=== PATIENT | male | born 1990 | race Caucasian/White ===

== ENCOUNTER 2017-02-25 13:12 | Emergency (ER) | payer OTHER ==
[~2017-02-25] VITALS: Ht 172.7 cm; Wt 88.6 kg
[2017-02-25 13:15] VITALS: BP 146/80; TEMP 97.9
[2017-02-25] MEDS ORDERED: NAPROSYN500 MG PO (13:36)
[2017-02-25] MEDS ORDERED: ZOFRAN 4MG T4 MG/TAB PO (13:37)
[2017-02-25] MEDS ORDERED: ASPI325T6 PO (13:37)
[2017-02-25] MEDS ORDERED: COLACE 100100 MG/CAP PO (13:38)
[2017-02-25] MEDS ORDERED: ROXICODONE 55 MG/TAB PO (13:39)
[2017-02-25] MEDS ORDERED: PERCOCET 325 MG1 TA2 PO (14:29)
[2017-02-25 14:46] VITALS: PULSE 95
== END 2017-02-25 14:47 | disposition home or self-care (01) ==
LOC: COL.ER 13:12
DX: M79.89 Other specified soft tissue disorders (principal); Z98.890 Other specified postprocedural states

== ENCOUNTER 2020-03-29 10:22 | Emergency (ER) | payer OTHER ==
[~2020-03-29] VITALS: Ht 172.7 cm; Wt 90.9 kg
[~2020-03-29 10:22] MED LIST: ASPI325T6 PO; COLACE 100100 MG/CAP PO; NAPROSYN500 MG PO; PERCOCET 325 MG1 TA2 PO; ROXICODONE 55 MG/TAB PO; ZOFRAN 4MG T4 MG/TAB PO
[2020-03-29 10:28] VITALS: TEMP 98.1
[2020-03-29 11:36] VITALS: BP 146/109; PULSE 101
== END 2020-03-29 11:36 | disposition home or self-care (01) ==
LOC: COL.ER 10:22
DX: M23.91 Unspecified internal derangement of right knee (principal); X50.1XXA Overexertion from prolonged static or awkward postures, initial encounter; Y93.44 Activity, trampolining

== ENCOUNTER 2020-11-13 21:18 | Emergency (ER) | payer OTHER ==
[~2020-11-13] VITALS: Ht 172.7 cm; Wt 90.9 kg
[2020-11-13 21:22] VITALS: BP 152/92; TEMP 97.4
[2020-11-13 21:50] VITALS: PULSE 100
== END 2020-11-13 21:48 | disposition home or self-care (01) ==
LOC: COL.ER 21:18
DX: S61.512A Laceration without foreign body of left wrist, initial encounter (principal); Z79.82 Long term (current) use of aspirin; W26.0XXA Contact with knife, initial encounter

== ENCOUNTER → 2021-07-05 | Outpatient (CLI) | payer OTHER | LOC: MHCPAIN 09:58 | DX: M47.816 Spondylosis without myelopathy or radiculopathy, lumbar region (principal); M54.16 Radiculopathy, lumbar region; M53.3 Sacrococcygeal disorders, not elsewhere classified | CPT/HCPCS: G0463 ==

== ENCOUNTER → 2021-07-19 | Outpatient (CLI) | payer OTHER | LOC: MHCPAIN 14:42 | DX: M47.817 Spondylosis without myelopathy or radiculopathy, lumbosacral region (principal); M54.16 Radiculopathy, lumbar region; M53.3 Sacrococcygeal disorders, not elsewhere classified | CPT/HCPCS: J1100; Q9967 ==

== ENCOUNTER → 2021-08-03 | Outpatient (CLI) | payer OTHER | LOC: MHCPAIN 09:31 | DX: M47.816 Spondylosis without myelopathy or radiculopathy, lumbar region (principal); M53.3 Sacrococcygeal disorders, not elsewhere classified; M54.16 Radiculopathy, lumbar region | CPT/HCPCS: G0463 ==

== ENCOUNTER → 2021-08-05 | Outpatient (CLI) | payer OTHER | LOC: MHCPAIN 08:03 | DX: M53.3 Sacrococcygeal disorders, not elsewhere classified (principal); M54.16 Radiculopathy, lumbar region; M47.817 Spondylosis without myelopathy or radiculopathy, lumbosacral region ==

== ENCOUNTER → 2021-08-23 | Outpatient (CLI) | payer OTHER | LOC: MHCPAIN 13:50 | DX: M47.817 Spondylosis without myelopathy or radiculopathy, lumbosacral region (principal); M54.50 Low back pain, unspecified; M53.3 Sacrococcygeal disorders, not elsewhere classified | CPT/HCPCS: G0463 ==

== ENCOUNTER → 2021-08-26 | Outpatient (CLI) | payer OTHER | LOC: MHCPAIN 12:38 | DX: M47.817 Spondylosis without myelopathy or radiculopathy, lumbosacral region (principal); M54.50 Low back pain, unspecified; M53.3 Sacrococcygeal disorders, not elsewhere classified ==

== ENCOUNTER → 2021-09-02 | Outpatient (CLI) | payer OTHER | LOC: MHCPAIN 07:58 | DX: M47.817 Spondylosis without myelopathy or radiculopathy, lumbosacral region (principal); M54.50 Low back pain, unspecified; M53.3 Sacrococcygeal disorders, not elsewhere classified | CPT/HCPCS: G0463 ==

== ENCOUNTER → 2021-09-06 | Outpatient (CLI) | payer OTHER | LOC: MHCPAIN 12:09 | DX: M47.817 Spondylosis without myelopathy or radiculopathy, lumbosacral region (principal); M54.50 Low back pain, unspecified; M53.3 Sacrococcygeal disorders, not elsewhere classified | CPT/HCPCS: G0463; J1100; J2250; J2405; J3010 ==